=== PATIENT | male | born 1990 | race Caucasian/White ===

== ENCOUNTER 2017-06-19 13:02 | Emergency (ER) | payer OTHER ==
[~2017-06-19] VITALS: Ht 188 cm; Wt 102.3 kg
[2017-06-19 13:02] VITALS: BP 138/95
== END 2017-06-19 14:16 | disposition home or self-care (01) ==
LOC: M ED 13:02
DX: R51 Headache (principal); I10 Essential (primary) hypertension; G89.29 Other chronic pain; M25.511 Pain in right shoulder; M25.512 Pain in left shoulder; F17.200 Nicotine dependence, unspecified, uncomplicated